=== PATIENT | male | born 1965 ===

== ENCOUNTER 2024-08-13 07:45 | Inpatient (IN) | payer OTHER ==
[~2024-08-13] VITALS: Ht 152.4 cm; Wt 74.8 kg
[2024-08-13 08:49] VITALS: BP 160/90
[2024-08-13 08:57] LABS: BASO % 0.6 % (0.1-1.2); EOS # 0.08 (0.04-0.54); EOS % 1.7 % (0.7-7.0); HEMATOCRIT 45.6 % (40.1-51.0); HEMOGLOBIN 14.8 g/dL (13.7-17.5); LYMPH # 1.08 (1.18-3.74); MEAN CORPUSCULAR HEMOGLOBIN 27.4 pg (25.6-32.2); MONO % 8.5 % (4.7-12.5); NEUT # 3.09 (1.56-6.13); PLATELET COUNT 253 K/uL (163-369)
[2024-08-13 09:17] LABS: COVID-19 AG NEGATIVE (NEGATIVE)
[2024-08-13 09:19] LABS: URINE APPEARANCE Clear; URINE BILIRRUBIN Negative (NEGATIVE); URINE BLOOD Negative; URINE COLOR Yellow; URINE GLUCOSE Negative (NEGATIVE); URINE KETONE Trace (NEGATIVE); URINE LEUKOCYTE Negative; URINE NITRATE Negative; URINE PROTEIN Negative (NEGATIVE); URINE UROBILINOGEN 0.2 E.U./dl
[2024-08-13 09:24] LABS: INR 1.02; PARTIAL THROMBOPLASTIN TIME 29.9 SECONDS (22.0-34.0); PROTHROMBIN TIME 11.1 SECONDS (9.0-11.5)
[2024-08-13 09:33] LABS: URINE BACTERIA 1.2 uL (0.0-1933); URINE RBC 0.7 uL (0.0-20.8); URINE WBC 0.2 uL (0.0-23.2)
[2024-08-13 10:19] LABS: CALCIUM 9.4 mg/dL (8.5-10.1); CREATININE SERUM 0.77 mg/dL (0.70-1.30); GFR 103.4; POTASSIUM 4.73 mEq/L (3.5-5.1)
[2024-08-13 10:32] LABS: RH NEGATIVE
[2024-08-15] MEDS ORDERED: CEFAZOLIN SODIUM 1,000 MG VIAL ONE (07:00)
[2024-08-15] MEDS ORDERED: CHLORHEXIDINE GLUCONATE 120 ML BOTTLE TOP ONE (07:15)
[2024-08-15] MEDS ORDERED: ENOXAPARIN SODIUM 40 MG/0.4 ML SYRINGE SUBCUTANEO ONE (07:18)
[2024-08-15] MEDS ORDERED: HEMOSTATIC MATRIX 1 KIT KIT TOP ONE (07:51)
[2024-08-15] MEDS ORDERED: SURGIFLO APPLICATOR 1 EACH APPL TOP ONE (07:51)
[2024-08-15] MEDS ORDERED: BUPIVACAINE HCL/MPF 0.5% 30ML VIAL ONE (07:51)
[2024-08-15] MEDS ORDERED: ONDANSETRON HCL 2 MG/ML VIAL IV PRN (11:30)
[2024-08-15] MEDS ORDERED: RINGERS SOLUTION,LACTATED 1,000 ML IV SCH (11:30)
[2024-08-15] MEDS ORDERED: MORPHINE SULFATE 4 MG/ML CARTRIDGE IV PRN (11:30)
[2024-08-15] MEDS ORDERED: OxyCODONE HCL 5 MG TABLET (ROXICODONE) PO PRN (11:30)
[2024-08-15] MEDS ORDERED: SUGAMMADEX SODIUM 200 MG/2 ML VIAL IV ONE (11:34)
[2024-08-15] MEDS ORDERED: ACETAMINOPHEN 325 MG TABLET PO PRN (12:00)
[2024-08-15] MEDS ORDERED: MORPHINE SULFATE 4 MG/ML VIAL IV ONE ×2 (13:15→13:45)
[2024-08-15 15:00] VITALS: BP 115/72; O2SAT 100
[2024-08-15 16:00] VITALS: BP 124/72; O2SAT 98
[2024-08-15] MEDS ORDERED: POLYETHYLENE GLYCOL 3350 17 GM BLIST.PACK PO SCH (17:00)
[2024-08-15] MEDS ORDERED: GABAPENTIN 300 MG CAPSULE PO SCH (17:00)
[2024-08-15] MEDS ORDERED: CEFAZOLIN SODIUM 1,000 MG VIAL IV SCH (21:00)
[2024-08-15] MEDS ORDERED: FAMOTIDINE/PF 20 MG/2 ML VIAL IV SCH (21:00)
[2024-08-16 00:14] VITALS: BP 113/73; O2SAT 96
[2024-08-16 01:08] VITALS: BP 108/67; O2SAT 100
[2024-08-16 09:00] VITALS: BP 121/71; O2SAT 96
[2024-08-16] MEDS ORDERED: ENOXAPARIN SODIUM 40 MG/0.4 ML SYRINGE SUBCUTANEO SCH (09:00)
[2024-08-16 09:21] LABS: ALBUMIN 2.8 gm/dL (3.4-5.0); CALCIUM 8.1 mg/dL (8.5-10.1); CREATININE SERUM 0.8 mg/dL (0.70-1.30); GFR 98.94; PHOSPHOROUS 3.4 mg/dL (2.5-4.9); POTASSIUM 4.09 mEq/L (3.5-5.1)
[2024-08-16 11:28] LABS: BASO % 0.4 % (0.1-1.2); EOS # 0.01 (0.04-0.54); EOS % 0.1 % (0.7-7.0); HEMATOCRIT 35.9 % (40.1-51.0); HEMOGLOBIN 11.7 g/dL (13.7-17.5); LYMPH # 0.97 (1.18-3.74); LYMPH % 12.6 % (19.3-53.1); MEAN CORPUSCULAR HEMOGLOBIN 27.4 pg (25.6-32.2); MONO # 0.58 (0.24-0.82); MONO % 7.6 % (4.7-12.5); NEUT # 6.06 (1.56-6.13); NEUT % 78.9 % (34.0-71.1); PLATELET COUNT 209 K/uL (163-369); RED BLOOD COUNT 4.27 M/uL (4.63-6.08); RED CELL DISTRIBUTION WIDTH 14.4 % (11.6-14.4)
== END 2024-08-16 14:27 | disposition home or self-care (01) | DRG 708 ==
LOC: O/R 08-15 05:39 → SURH 08-15 05:39
PROVIDERS: ADMIT Urology; ATTEND Urology
PROC: 8E0W4CZ Robotic Assisted Procedure of Trunk Region, Percutaneous Endoscopic Approach (ICD-10-PCS; 2024-08-15)
PROC: 07BC4ZZ Excision of Pelvis Lymphatic, Percutaneous Endoscopic Approach (ICD-10-PCS; 2024-08-15)
PROC: 0VT04ZZ Resection of Prostate, Percutaneous Endoscopic Approach (ICD-10-PCS; principal; 2024-08-15 12:45)
DX: C61 Malignant neoplasm of prostate (principal)
CPT/HCPCS: 55866; 38571; S2900